=== PATIENT | male | born 1990 | race Caucasian/White ===

== ENCOUNTER 2017-02-14 20:03 | Emergency (ER) | payer OTHER ==
--- NOTE | ~2017-02-14 | CR281 ---
[facility]. [facility] A Service of [facility] & [facility] RADIOLOGY TEXT RESULTS PATIENT: PATRICIO RODRIGUEZ LOCATION: SED : [birth year] UNIT #: [id number] AGE: [address]: Hailey Healy SEX: M ORDER DR: [id number] [place] [id number] E MR#: [id number] #: [id number] NAME: PATRICIO RODRIGUEZ : 1990 SEX: M STUDY DATE/TIME: 02/14/2017 20:32 UNIT: SED ROOM: STUDY DESCRIPTION: CR Wrist Min 3 View Lt Attending Physician: Hailey Healy Pa-C Ordering Physician: Hailey Healy Pa-C MEDICAL IMAGING REPORT This report is preliminary unless electronic signature is present. EXAM Left wrist 3 views HISTORY Wrist pain after injury today. FINDINGS 2 views of the left wrist demonstrate mild chronic ventral bowing of the distal radial shaft, and old hardware tracts in the distal shaft of the radius and ulna where hardware as previously noted on 04/26/2006. No acute fracture, joint space narrowing or dislocation. IMPRESSION No acute fracture. There are old postoperative changes in the distal radius and ulna at the site of previously noted plate and screw fixation. Dictated by... Juarez Jordan M.D. THIS IS AN ELECTRONICALLY VERIFIED REPORT Juarez Jordan M.D. at 02/14/2017 11:22 PM DFL/pcl TD: 02/14/2017 22:33 JOB #: [id number] MEDICAL IMAGING REPORT Page 1 of 1
[~2017-02-14 20:03] MED LIST: ALLERGY MED PO; BACLOFEN10 MG PO; BENTYL20 MG PO; DEXILANT60 MG PO; FAMOTIDINE20 MG PO; FLEXERIL PO; IBUPROFEN600 MG PO; MEDROL PO; NAPROSYN500 MG PO; NO MEDICATIONS; PAIN MED PO; VICODIN 5/1 TAB 5/50 PO; ZOFRAN ODT4 MG PO
== END 2017-02-14 21:50 | disposition home or self-care (01) ==
LOC: SED 20:03
DX: S50.12XA Contusion of left forearm, initial encounter (principal); F17.200 Nicotine dependence, unspecified, uncomplicated; W20.8XXA Other cause of strike by thrown, projected or falling object, initial encounter; Y92.009 Unspecified place in unspecified non-institutional (private) residence as the place of occurrence of the external cause
CPT/HCPCS: 73110; 99283